=== PATIENT | female | born 1990 | race Caucasian/White ===

== ENCOUNTER 2016-06-22 12:48 | Emergency (ER) | payer OTHER ==
--- NOTE | 2016-06-22 14:22 | UC ---
Complaint Female HPI - HPI Summary HPI Summary: has kush vaginal pain and swelling--was in [place], some spotting, pain with urination - History Of Current Complaint Chief Complaint: UCGU Stated Complaint: URINARY Time Seen by Provider: 06/22/16 14:03 Hx Obtained From: Patient Hx Last Menstrual Period: 12/14/15 ?: No Onset/Duration: Gradual Onset, Lasting Days, Still Present Timing: Constant Severity Initially: Moderate Severity Currently: Moderate Pain Intensity: 5 Pain Scale Used: 0-10 Numeric Character: Burning Aggravating Factor(s): Urination Alleviating Factor(s): Nothing Associated Signs And Symptoms: Positive: Genital Swelling Related Hx: - 2, Para - 2 - Allergies/Home Medications Allergies/Adverse Reactions: Allergies Allergy/AdvReac Type Severity Reaction Status Date / Time No Known Allergies Allergy Verified 06/22/16 14:19 Home Medications: Home Medications Citalopram TAB* [CeleXA TAB*] 10 mg PO DAILY 06/22/16 [History Confirmed ] PMH/Surg Hx/FS Hx/Imm Hx Previously Healthy: Yes Endocrine History Of: Denies: Diabetes, Thyroid Disease Cardiovascular History Of: Denies: Cardiac Disorders, Hypertension Respiratory History Of: Denies: COPD, Asthma GI/ History Of: Denies: Ulcer - Surgical History Surgical History: Yes Surgery Procedure, Year, and Place: C-SECT, periductal mastitis left breast. D& C - Family History Known Family History: Positive: Cardiac Disease, Hypertension, Diabetes, Other - multiple cancers in paternal Aunts - Social History Occupation: Employed Full-time Lives: With Family Alcohol Use: Rare Substance Use Type: None Smoking Status (MU): Light Every Day Tobacco Smoker Type: Cigarettes Amount Used/How Often: 1/4 PPD Length of Time of Smoking/Using Tobacco: 10 YRS Household Exposure Type: Cigarettes Cessation Counseling: Counseled 3+Min - 10 Min - Immunization History Most Recent Tetanus Shot: within 5 years Review of Systems Constitutional: Negative Skin: Negative Eyes: Negative ENT: Negative Respiratory: Negative Cardiovascular: Negative Gastrointestinal: Negative Genitourinary: Dysuria Motor: Negative Neurovascular: Negative Musculoskeletal: Negative Neurological: Negative Psychological: Negative All Other Systems Reviewed And Are Negative: Yes Physical Exam Triage Information Reviewed: Yes Appearance: Well-Appearing, No Pain Distress, Well-Nourished Vital Signs Reviewed: Yes Eye Exam: Normal Eyes: Positive: Conjunctiva Clear ENT Exam: Normal ENT: Positive: Normal ENT inspection, Hearing grossly normal. Negative: Nasal congestion, Nasal drainage, Trismus, Muffled/hoarse voice Neck exam: Normal Neck: Positive: Supple, Nontender, No Lymphadenopathy Respiratory Exam: Normal Respiratory: Positive: Chest non-tender, Lungs clear, Normal breath sounds, No respiratory distress, No accessory muscle use Cardiovascular Exam: Normal Cardiovascular: Positive: RRR, No Murmur, Pulses Normal, Brisk Capillary Refill Abdominal Exam: Normal Abdomen Description: Positive: Nontender, No Organomegaly, Soft Bowel Sounds: Positive: Present Musculoskeletal Exam: Normal Musculoskeletal: Positive: Strength Intact, ROM Intact, No Edema Neurological Exam: Normal Neurological: Positive: Alert, Muscle Tone Normal Psychological Exam: Normal Skin Exam: Normal Re-Evaluation - Re-Evaluation First Eval Change: Improved - lab studies obtained, patient tolerated pelvic exam well Complaint Female Dx - Course Course Of Treatment: a&D ointment to perineium, cool baths, follow with pcp - Differential Dx/Diagnosis Differential Diagnosis/HQI/PQRI: Renal Colic, Sexually Transmitted Disease, Ureteral Stone, Urinary Tract Infection Provider Diagnoses: Excoration of perineum Discharge - Discharge Plan Condition: Stable Disposition: HOME Patient Education Materials: Vaginal Discharge (ED) Referrals: CAMPBELL Bhatia [Primary Care Provider] - 5 Days Additional Instructions: cool water and samson (if any) soap wash, pat completely dry return to your usual hygiene products a small amount of a&D or desitin type ointments can protect urine skin from the irritation of the urine
[2016-06-22 14:26] VITALS: BP 126/60
== END 2016-06-22 15:06 | disposition home or self-care (01) ==
LOC: UCCORT 12:48
DX: S30.814A Abrasion of vagina and vulva, initial encounter (principal); X58.XXXA Exposure to other specified factors, initial encounter; Y93.9 Activity, unspecified; Y92.9 Unspecified place or not applicable; F17.210 Nicotine dependence, cigarettes, uncomplicated; Z71.6 Tobacco abuse counseling; Z32.02 Encounter for pregnancy test, result negative
CPT/HCPCS: 81003; 84702; 87480; 87491; 87510; 87591; 87661; 99212; G0463

== ENCOUNTER 2016-09-14 10:25 | Emergency (ER) | payer OTHER ==
[2016-09-14 11:05] VITALS: BP 114/57
--- NOTE | 2016-09-14 12:37 | UC ---
General HPI - HPI Summary HPI Summary: complaint of left arm pain went camping this weekend and woke up with insect bite on frind night took some benadryl srea of redness has increased and now is painful headache and nauseated denies fever and chills - History of Current Complaint Chief Complaint: UCRas Stated Complaint: INSECT BITE,REDNESS/ SWELLING LEFT ARM Time Seen by Provider: 09/14/16 12:26 Hx Obtained From: Patient - Allergy/Home Medications Allergies/Adverse Reactions: Allergies Allergy/AdvReac Type Severity Reaction Status Date / Time No Known Allergies Allergy Verified 09/14/16 10:58 Home Medications: Home Medications diPHENhydraMINE PO* [Benadryl PO 25 MG TAB*] 25 mg PO TID PRN 09/14/16 [History Confirmed 09/14/16] PMH/Surg Hx/FS Hx/Imm Hx Previously Healthy: Yes Psychological History: Anxiety, Depression - Surgical History Surgical History: Yes Surgery Procedure, Year, and Place: C-SECT, periductal mastitis left breast. D& C - Family History Known Family History: Positive: Cardiac Disease, Hypertension, Diabetes, Other - multiple cancers in paternal Aunts - Social History Occupation: Employed Full-time Lives: With Family Alcohol Use: Rare Substance Use Type: None Smoking Status (MU): Heavy Every Day Tobacco Smoker Type: Cigarettes Amount Used/How Often: 1/2 PPD Length of Time of Smoking/Using Tobacco: 10 YRS Household Exposure Type: Cigarettes Cessation Counseling: Patient Advised to Stop - Immunization History Most Recent Tetanus Shot: within 5 years Review of Systems Constitutional: Negative Skin: Rash Eyes: Negative ENT: Negative Respiratory: Negative Cardiovascular: Negative Gastrointestinal: Negative Genitourinary: Negative Motor: Negative Neurovascular: Negative Musculoskeletal: Negative Neurological: Negative Psychological: Negative All Other Systems Reviewed And Are Negative: Yes Physical Exam Triage Information Reviewed: Yes Appearance: No Pain Distress, Well-Nourished, Obese Vital Signs: Initial Vital Signs Temp 98.1 F 09/14/16 10:59 Pulse 75 09/14/16 10:59 Resp 16 09/14/16 10:59 BP 114/57 09/14/16 10:59 Pulse Ox 99 09/14/16 10:59 Vital Signs Reviewed: Yes Eyes: Positive: Conjunctiva Clear ENT: Positive: Pharynx normal, TMs normal Neck: Positive: No Lymphadenopathy Respiratory: Positive: Lungs clear, Normal breath sounds, No respiratory distress Cardiovascular: Positive: RRR, No Murmur, Pulses Normal Abdomen Description: Positive: Nontender, Soft Bowel Sounds: Positive: Present Musculoskeletal Exam: Normal Neurological: Positive: Alert Psychological Exam: Normal Skin: Positive: Other - left arm 16x13 cm area of erythema on left arm surrounding bite site Course/Dx - Course Course Of Treatment: exam completed. cellulitis secondary to insect bite. UTD tetanus. will rx of keflex - Differential Dx - Multi-Symptom Provider Diagnoses: ceeeluitis left ring finger and left arm Discharge - Discharge Plan Condition: Stable Disposition: HOME Prescriptions: Cephalexin CAP* [Keflex CAP*] 500 mg PO QID #28 cap Patient Education Materials: Cellulitis (ED) Referrals: CAMPBELL Bhatia [Primary Care Provider] - Additional Instructions: Please start antibiotic as directed Increase fluids and rest Take acetaminophen or ibuprofen for fever or pain Please review your discharge instructions. If your symptoms do not improve please call your primary care provider or return to urgent care. CELLULITIS What is Cellulitis? Cellulitis is a bacterial infection of the skin and, sometimes, of the tissues beneath the skin. The skin normally has many types of bacteria on it, but intact skin is an effective barrier that keeps bacteria from entering and growing within the body. When there is a break in the skin, bacteria can enter the body and grow there, causing infection. The infection usually affects outer layers of the skin first, and then spreads deeper into body tissues. Cellulitis can affect any area of the body covered by skin, but it is most common on the face or lower part of the legs. Symptoms Might Include: Skin redness that increases in size as the infection spreads Tight, glossy, "stretched" appearance of the skin Pain or tenderness of the area The affected area may be warm or hot to the touch A thin red line (along a vein) from the cellulitis toward the heart Fever Chills, shaking Muscle aches pains Joint stiffness because of swelling around a joint Treatment Recommendations: The healthcare provider may have prescribed an antibiotic medicine. The medicine should be taken until it is completely gone, even if you are feeling better. If you stop taking the medicine early, the infection may not be completely gone, and the medication may not work the next time. If the infection is on your arm or leg, keep it elevated. You may use warm, wet compresses to relieve the pain and help healing. Soak a clean cloth in warm water, wring it out a little, and apply it to the affected site. Leave the soak in place for 15 minutes and repeat often throughout the day. Rest until the fever is gone and the pain and redness have lessened. You may take ibuprofen (Motrin, Advil), or acetaminophen (Tylenol) for pain. These will help ease some of the symptoms but will not cure the infection. Call Your Doctor or Return Here IF: Your fever does not go down with treatment, or it increases to more than 101 F. You are not starting to get better with the treatment within 24 to 36 hours. You have increasing pain, swelling, or chills. You feel drowsy and lethargic, or you have vomiting or diarrhea. You find the redness is spreading or there are red streaks coming from the infected area. The joint or bone under the infected skin becomes painful after the skin has started to heal. You have any new symptoms that worry you.
== END 2016-09-14 12:52 | disposition home or self-care (01) ==
LOC: UCCORT 10:25
DX: L03.012 Cellulitis of left finger (principal); L03.114 Cellulitis of left upper limb; F17.210 Nicotine dependence, cigarettes, uncomplicated
CPT/HCPCS: 99212; G0463

== ENCOUNTER 2016-10-14 16:37 | Emergency (ER) | payer OTHER ==
[2016-10-14 17:02] VITALS: BP 138/74
--- NOTE | 2016-10-14 17:33 | UC ---
Skin Complaint HPI - HPI Summary HPI Summary: Redness, swelling, pain, firmness under and around R nipple for about a week. Has been feeling feverish, has not checked temperature. Had very similar symptoms in L breast after of child 3 years ago, was dx with "periductal mastitis" and had to have I&D in L nipple. Denies hx of MRSA or other resistant pathogens. No recent trauma, piercings, is not breast-feeding. - History of Current Complaint Chief Complaint: UCSkin Time Seen by Provider: 10/14/16 17:05 Stated Complaint: PERSONAL Hx Obtained From: Patient Hx Last Menstrual Period: 10/14/16 ?: No Onset/Duration: Gradual Onset, Lasting Days Timing: Constant Onset Severity: Mild Current Severity: Severe Location: Discrete Character: Pain, Redness Aggravating: Touch Associated Signs & Symptoms: Positive: Tenderness - Allergy/Home Medications Allergies/Adverse Reactions: Allergies Allergy/AdvReac Type Severity Reaction Status Date / Time No Known Allergies Allergy Verified 10/14/16 16:56 Home Medications: Home Medications Acetaminophen TAB* [Tylenol TAB*] 1,000 mg PO Q6H PRN 10/14/16 [History Confirmed 10/14/16] Venlafaxine EXT RELEASE CAP* [Effexor Xr CAP*] 37.5 mg PO DAILY 10/14/16 [ History Confirmed 10/14/16] Review of Systems Constitutional: Negative Skin: Other - redness, tenderness R nipple Eyes: Negative ENT: Negative Respiratory: Negative Cardiovascular: Negative Gastrointestinal: Negative Genitourinary: Negative Motor: Negative Neurovascular: Negative Musculoskeletal: Negative Neurological: Negative Psychological: Negative All Other Systems Reviewed And Are Negative: Yes PMH/Surg Hx/FS Hx/Imm Hx - Additional Past Medical History Additional PMH: periductal mastitis L breast/nipple 2013 - Surgical History Surgical History: Yes Surgery Procedure, Year, and Place: C-SECT, periductal mastitis left breast. D& C - Family History Known Family History: Positive: Cardiac Disease, Hypertension, Diabetes, Other - multiple cancers in paternal Aunts - Social History Occupation: Employed Full-time Lives: With Family Alcohol Use: Rare Substance Use Type: None Smoking Status (MU): Heavy Every Day Tobacco Smoker Type: Cigarettes Amount Used/How Often: 1/2 PPD Length of Time of Smoking/Using Tobacco: 10 YRS Household Exposure Type: Cigarettes - Immunization History Most Recent Tetanus Shot: within 5 years Physical Exam Triage Information Reviewed: Yes Appearance: Well-Appearing, Pain Distress - mod with movement and palpation, Obese Vital Signs: Initial Vital Signs Temp 99.3 F 10/14/16 16:58 Pulse 75 10/14/16 16:58 Resp 16 10/14/16 16:58 BP 138/74 10/14/16 16:58 Pulse Ox 96 10/14/16 16:58 Vital Signs Reviewed: Yes Eye Exam: Normal, Other - PERRL Eyes: Positive: Conjunctiva Clear ENT Exam: Normal ENT: Positive: Normal ENT inspection, Hearing grossly normal, Pharynx normal, TMs normal Dental Exam: Normal Neck exam: Normal Neck: Positive: Supple, Nontender Respiratory Exam: Normal Respiratory: Positive: Chest non-tender, Lungs clear, Normal breath sounds, No respiratory distress, No accessory muscle use Cardiovascular Exam: Normal Cardiovascular: Positive: RRR, No Murmur Musculoskeletal Exam: Normal Musculoskeletal: Positive: Strength Intact, ROM Intact Neurological Exam: Normal Neurological: Positive: Alert Skin: Positive: significant lesion(s) - redness, swelling firm in the center of R nipple and out to approx 1cm around nipple. Very tender. R axillary LAD Course/Dx - Differential Diagnoses - Skin Complaint Differential Diagnoses: Cellulitis, Impetigo - Diagnoses Provider Diagnoses: R mastitis Discharge - Discharge Plan Condition: Stable Disposition: HOME Prescriptions: Dicloxacillin CAP* [Dynapen CAP*] 500 mg PO QID #40 cap Ibuprofen TAB* [Motrin TAB* 600 MG] 600 mg PO Q8H PRN #30 tab PRN Reason: Pain Patient Education Materials: Mastitis (ED) Referrals: CAMPBELL Bhatia [Primary Care Provider] - José Miguel Cobb MD [Medical Doctor] - 3 Days Additional Instructions: As we discussed, you need close follow-up and possibly further testing such as bloodwork or an ultrasound. Call the surgeon's office tomorrow morning and explain that you were seen here. If they cannot see you by the end of the week, you can try a more local surgeon.
== END 2016-10-14 17:30 | disposition home or self-care (01) ==
LOC: UCCORT 16:37
DX: N61.0 Mastitis without abscess (principal)
CPT/HCPCS: 99212; G0463

== ENCOUNTER 2017-12-29 09:12 | Emergency (ER) | payer OTHER ==
[2017-12-29 09:51] VITALS: BP 116/70
--- NOTE | 2017-12-29 10:02 | UC ---
Ear Complaint HPI - HPI Summary HPI Summary: 27 y/o female presents to the urgent care c/o sinus pain w/ yellowish nasal discharge, nasal congestion for the past 5 days. symptoms getting worse for the past 3 days w/ a GUZMAN. She has Hx of Migraine GUZMAN in the past. she has taking Tylenol PO w/o any relief. B/L ear pain and pressure and a lot of PND which is now triggering a dry cough since yesterday. Pain is 7/10 and Headache is like a band in her forehead. Pt denies dizziness, photophobia, SOB, chest pain, abdominal pain, N/V/D. - History of Current Complaint Chief Complaint: UCGeneralIllness Stated Complaint: EARS,HEADACHE Time Seen by Provider: 12/29/17 10:01 Hx Obtained From: Patient Hx Last Menstrual Period: 12/21/17 ?: No Onset/Duration: Gradual Onset, Lasting Days - 5 days, Still Present, Worse Since - 3 days ago Severity Initially: Mild Severity Currently: Moderate Pain Intensity: 7 Pain Scale Used: 0-10 Numeric Aggravating Factors: Cold Alleviating Factors: OTC Meds Associated Signs/Symptoms: Positive: URI Symptoms Related History: Seasonal Allergies - Allergies/Home Medications Allergies/Adverse Reactions: Allergies Allergy/AdvReac Type Severity Reaction Status Date / Time No Known Allergies Allergy Verified 12/29/17 09:47 PMH/Surg Hx/FS Hx/Imm Hx Previously Healthy: Yes - Pt denies PMHX - Surgical History Surgical History: Yes Surgery Procedure, Year, and Place: C-SECT, periductal mastitis left breast. D& C - Family History Known Family History: Positive: Cardiac Disease, Hypertension, Diabetes Family History: multiple cancers in paternal Aunts - Social History Occupation: Employed Full-time Lives: With Family Alcohol Use: None Substance Use Type: None Smoking Status (MU): Heavy Every Day Tobacco Smoker Type: Cigarettes Amount Used/How Often: 1/2 PPD Length of Time of Smoking/Using Tobacco: 10 YRS Household Exposure Type: Cigarettes - Immunization History Most Recent Tetanus Shot: within 5 years Review of Systems Constitutional: Negative Skin: Negative Eyes: Negative ENT: Ear Ache - B/L pain, Nasal Discharge - yellowish, Sinus Congestion, Sinus Pain/Tenderness Respiratory: Cough - dry Cardiovascular: Negative Gastrointestinal: Negative Genitourinary: Negative Motor: Negative Neurovascular: Negative Musculoskeletal: Negative Neurological: Headache Psychological: Negative Is Patient Immunocompromised?: No All Other Systems Reviewed And Are Negative: Yes Physical Exam - Summary Physical Exam Summary: Vitals: reviewed General: Well developed, well-nourished female patient with NAD. Head and face: Normocephalic and atraumatic, Positive tenderness over the frontal and maxillary sinuses.. Eyes: PERRLA, EOMI x 2. Normal conjunctiva. No eye discharge. ENT: Ears and TM with normal limits. Nose: edematous and erythematous nasal mucosa with with yellowish discharge and erythematous mucosa. Pharynx with erythema, no exudate. +PND yellowish Neck: Supple, no JVD, no carotid bruits and no lymphadenopathy. Lungs: clear, no rales, no rhonchi, no wheezes. CVS: RRR, S1 and S2 present no murmurs or gallops appreciated. Abdomen: soft nontender with positive bowel sounds. Extremities: no edema noted. Neuro: WNL. Skin: warm and dry Triage Information Reviewed: Yes Vital Signs: Initial Vital Signs Temp 98.8 F 12/29/17 09:45 Pulse 83 12/29/17 09:45 Resp 16 12/29/17 09:45 BP 116/70 12/29/17 09:45 Pulse Ox 99 12/29/17 09:45 Ear Complaint Course/Dx - Course Course Of Treatment: 27 y/o female presents to the urgent care c/o sinus pain w / yellowish nasal discharge, nasal congestion for the past 5 days. symptoms getting worse for the past 3 days w/ a GUZMAN. She has Hx of Migraine GUZMAN in the past. she has taking Tylenol PO w/o any relief. B/L ear pain and pressure and a lot of PND which is now triggering a dry cough since yesterday. Pain is 7/10 and Headache is like a band in her forehead. Pt denies dizziness, photophobia, SOB, chest pain, abdominal pain, N/V/D. Hx obtained. Pt with Acute bacterial sinusitis on examination and symptoms getting worse w/ GUZMAN and sinus pressure. Pt givne Ibuprofen PO at the clinic to alleviate GUZMAN. Pt tolerated well medicationa nd GUZMAN improved. Pt Rx Augmentin PO and flonase nasal spray. Ibuprofen PO PO for GUZMAN. Discharge instructions explained to Pt. Advised to Return to the clinic or PCP if symptoms do not improve.Pt understood and agreed with plan of care. - Differential Dx/Diagnosis Differential Diagnosis/HQI/PQRI: Cerumen Impaction, Otitis Externa, Otitis Media , URI, Other - sinusitis, Migrane, Tension Headache Provider Diagnoses: 1- Acute bacterial sinusitis. 2- Headache Discharge - Sign-Out/Discharge Documenting (check all that apply): Patient Departure - D/C home All imaging exams completed and their final reports reviewed: No Studies - Discharge Plan Condition: Stable Disposition: HOME Prescriptions: Amoxicillin/Clavulanate TAB* [Augmentin TAB 875*] 875 mg PO BID #20 tab Fluticasone NASAL SPRAY 50MCG* [Flonase NASAL SPRAY 50MCG*] 2 spray BOTH NARES DAILY #1 btl Ibuprofen TAB* [Motrin TAB* 800 MG] 800 mg PO Q6H PRN #30 tab PRN Reason: Headache Patient Education Materials: Sinusitis (ED) Forms: *Work Release Referrals: [facility] [place] [facility] [Outside] - 3 Days Additional Instructions: 1- Please increase fluid intake and rest. take full course of antibiotic to avoid resistance 2-Use Flonase as directed to help drain fluid. Also buy saline drops to clear sinuses 3-Take Ibuprofen PO q6-8hrs prn after meals as directed to alleviate Headache and sinus pain. 4-Return to the clinic or PCP in 3 days if symptoms do not improve for further management and treatment - Billing Disposition and Condition Condition: STABLE Disposition: Home
[2017-12-29] MEDS ORDERED: Ibuprofen TAB* 400 MG PO ONE (10:10)
== END 2017-12-29 10:24 | disposition home or self-care (01) ==
LOC: UCCORT 09:12
DX: J01.90 Acute sinusitis, unspecified (principal); B96.89 Other specified bacterial agents as the cause of diseases classified elsewhere; R51 Headache; F17.210 Nicotine dependence, cigarettes, uncomplicated
CPT/HCPCS: 99212; A9270-GY; G0463

== ENCOUNTER 2018-06-15 11:48 | Emergency (ER) | payer OTHER ==
[2018-06-15 12:20] VITALS: BP 110/66
--- NOTE | 2018-06-15 13:07 | UC ---
UC General HPI - HPI Summary HPI Summary: PT C/O NAUSEA WITH 4-5 BOUTS OF DIARRHEA DAILY SINCE THURSDAY. SHE NOTES THAT TODAY, SHE IS STARTING TO FEEL BETTER AND ONLY HAD A LITTLE DIARRHEA ONCE THIS AM. NO ABDOMINAL PAIN, FEVER, RECENT ANTIBIOTIC USE, TRAVEL OUTSIDE THE COUNTRY OR HX IBD. - History of Current Complaint Chief Complaint: UCGI Stated Complaint: DIARRHEA,DISCOMFORT Time Seen by Provider: 06/15/18 12:59 Hx Obtained From: Patient Hx Last Menstrual Period: 06/09/18 Pain Intensity: 0 Associated Signs & Symptoms: Positive: Diarrhea, Nausea. Negative: Abdominal Pain, Fever - Allergy/Home Medications Allergies/Adverse Reactions: Allergies Allergy/AdvReac Type Severity Reaction Status Date / Time all cillins Allergy Swelling Uncoded 06/15/18 12:18 Home Medications: Home Medications NK [No Home Medications Reported] 06/15/18 [History Confirmed 06/15/18] PMH/Surg Hx/FS Hx/Imm Hx Previously Healthy: Yes - Surgical History Surgical History: Yes Surgery Procedure, Year, and Place: C-SECT, periductal mastitis left breast. D& C - Family History Known Family History: Positive: Cardiac Disease, Hypertension, Diabetes, Other - multiple cancers in paternal Aunts Family History: multiple cancers in paternal Aunts - Social History Occupation: Employed Full-time Alcohol Use: Rare Substance Use Type: None Smoking Status (MU): Heavy Every Day Tobacco Smoker Type: Cigarettes Amount Used/How Often: 1/2 PPD Length of Time of Smoking/Using Tobacco: 10 YRS Household Exposure Type: Cigarettes - Immunization History Most Recent Tetanus Shot: within 5 years Review of Systems All Other Systems Reviewed And Are Negative: Yes Gastrointestinal: Positive: Diarrhea, Nausea. Negative: Abdominal Pain Physical Exam Triage Information Reviewed: Yes Appearance: Well-Appearing Vital Signs: Initial Vital Signs Temp 97.9 F 06/15/18 12:15 Pulse 89 06/15/18 12:15 Resp 17 06/15/18 12:15 BP 110/66 06/15/18 12:15 Pulse Ox 100 06/15/18 12:15 Vital Signs Reviewed: Yes Eyes: Positive: Conjunctiva Clear ENT: Positive: Pharynx normal, TMs normal. Negative: Nasal congestion, Nasal drainage Neck: Positive: Supple, Nontender, No Lymphadenopathy Respiratory: Positive: Lungs clear, Normal breath sounds, No respiratory distress Cardiovascular: Positive: RRR, No Murmur Abdomen Description: Positive: Nontender, No Organomegaly, Soft. Negative: Distended, Guarding Bowel Sounds: Positive: Present Musculoskeletal: Positive: ROM Intact Neurological: Positive: Alert Psychological: Positive: Age Appropriate Behavior Skin Exam: Normal Course/Dx - Differential Dx - Multi-Symptom Differential Diagnoses: Other - NON TOXIC, NO ACUTE ABDOMEN. NO CONCERN FOR C- DIFF COLITIS, PARASITES OR TRAVELERS DIARRHEA. - Diagnoses Provider Diagnosis: Nausea, Diarrhea Discharge - Sign-Out/Discharge Documenting (check all that apply): Patient Departure All imaging exams completed and their final reports reviewed: No Studies - Discharge Plan Condition: Stable Disposition: HOME Patient Education Materials: Acute Diarrhea (ED) Forms: *Work Release Referrals: CAMPBELL Martino [Primary Care Provider] - Additional Instructions: FOLLOW UP PRIMARY CARE IF NOT BETTER WITHIN 3-4 DAYS OR SOONER IF WORSE. - Billing Disposition and Condition Condition: STABLE Disposition: Home - Attestation Statements Provider Attestation: I was available for consult. This patient was seen by the [facility]. The patient was not presented to, seen by, or examined by me. -Dino
== END 2018-06-15 13:20 | disposition home or self-care (01) ==
LOC: UCCORT 11:48
DX: R11.0 Nausea (principal); R19.7 Diarrhea, unspecified; F17.210 Nicotine dependence, cigarettes, uncomplicated; Z88.0 Allergy status to penicillin
CPT/HCPCS: 99211; G0463

== ENCOUNTER 2018-11-12 09:51 | Emergency (ER) | payer OTHER ==
[2018-11-12 10:46] VITALS: BP 121/76
--- NOTE | 2018-11-12 10:48 | UC ---
Lower Extremity/Ankle HPI - HPI Summary HPI Summary: 28-year-old female who has had some pain at the base of the left great toe. She has no history of gout however there is a family history of gout. She denies any injury however she states she is on her feet all day and 40 hours a week. She states occasionally the pain will shoot into the plantar surface of her left foot. - History of Current Complaint Chief Complaint: UCLowerExtremity Stated Complaint: LEFT FOOT COMPLAINT Time Seen by Provider: 11/12/18 10:36 Hx Obtained From: Patient Hx Last Menstrual Period: 11/10/18 ?: No Onset/Duration: Gradual Onset Severity Initially: Mild Severity Currently: Mild Pain Intensity: 4 Aggravating Factor(s): Ambulation Alleviating Factor(s): Rest Able to Bear Weight: Yes - Allergies/Home Medications Allergies/Adverse Reactions: Allergies Allergy/AdvReac Type Severity Reaction Status Date / Time all cillins Allergy Swelling Uncoded 11/12/18 10:46 PMH/Surg Hx/FS Hx/Imm Hx Previously Healthy: Yes - Surgical History Surgical History: Yes Surgery Procedure, Year, and Place: C-SECT, periductal mastitis bilat. breast. D&C - Family History Known Family History: Positive: Cardiac Disease, Hypertension, Diabetes, Other - multiple cancers in paternal Aunts, family history of gout Family History: multiple cancers in paternal Aunts - Social History Alcohol Use: Rare Substance Use Type: None Smoking Status (MU): Heavy Every Day Tobacco Smoker Type: Cigarettes Amount Used/How Often: 1/2 ppd Length of Time of Smoking/Using Tobacco: since age 13 Have You Smoked in the Last Year: Yes Household Exposure Type: Cigarettes - Immunization History Most Recent Tetanus Shot: within 5 years Review of Systems All Other Systems Reviewed And Are Negative: Yes Musculoskeletal: Positive: Other: - Pain at the base of the left great toe with minimal swelling. Is Patient Immunocompromised?: No Physical Exam Triage Information Reviewed: Yes Appearance: Well-Appearing, No Pain Distress, Well-Nourished Vital Signs: Initial Vital Signs Temp 98.3 F 11/12/18 10:35 Pulse 80 11/12/18 10:35 Resp 15 11/12/18 10:35 BP 121/76 11/12/18 10:35 Pulse Ox 100 11/12/18 10:35 Vital Signs Reviewed: Yes Musculoskeletal: Positive: Strength Intact, ROM Intact, Other: - Very minimal swelling at the base of the left great toe with minimal erythema. Good peripheral pulses neuro sensation capillary refill. Good range of motion. Achilles is intact. Neurological: Positive: Alert, Muscle Tone Normal Psychological Exam: Normal Skin Exam: Normal Lower Extremity Course/Dx - Course Course Of Treatment: Left foot x-ray: Negative - Differential Dx/Diagnosis Provider Diagnosis: Foot pain, left Discharge - Sign-Out/Discharge Documenting (check all that apply): Patient Departure All imaging exams completed and their final reports reviewed: Yes - Discharge Plan Condition: Good Disposition: HOME Patient Education Materials: Low Purine Diet (ED), Gout (ED) Referrals: Gerardo Rodriguez MD [Primary Care Provider] - Additional Instructions: Ice and elevate as sparingly as possible. Take Motrin for pain. Follow-up with your primary care provider as needed if no improvement. - Billing Disposition and Condition Condition: GOOD Disposition: Home
== END 2018-11-12 11:23 | disposition home or self-care (01) ==
LOC: UCCORT 09:51
DX: M79.672 Pain in left foot (principal); F17.210 Nicotine dependence, cigarettes, uncomplicated
CPT/HCPCS: 99211; G0463

== ENCOUNTER 2018-11-15 11:21 | Emergency (ER) | payer OTHER ==
[2018-11-15 13:00] VITALS: BP 105/64
--- NOTE | 2018-11-15 14:25 | UC ---
Lower Extremity/Ankle HPI - HPI Summary HPI Summary: Pt presents with c/o worsening left foot pain and ankle weakness. Pt was seen here on 11/12 and had an xray of left foot that was negative for fracture. Pt states pain is wrose along plantar aspect of foot, radiates from heel to toes. - History of Current Complaint Chief Complaint: UCLowerExtremity Stated Complaint: LEFT ANKLE/FOOT RE-CK Time Seen by Provider: 11/15/18 13:02 Hx Obtained From: Patient Hx Last Menstrual Period: 11/08/18 ?: No Onset/Duration: Gradual Onset, Worse Since - onset Severity Initially: Mild Severity Currently: Moderate Pain Intensity: 6 Pain Scale Used: 0-10 Numeric Aggravating Factor(s): Standing, Ambulation Alleviating Factor(s): Rest, Elevation Able to Bear Weight: Yes - minimal - Risk Factors Gout Risk Factors: Negative, Obesity DVT Risk Factors: Negative Septic Arthritis Risk Factor: Negative - Allergies/Home Medications Allergies/Adverse Reactions: Allergies Allergy/AdvReac Type Severity Reaction Status Date / Time all cillins Allergy Swelling Uncoded 11/15/18 13:01 PMH/Surg Hx/FS Hx/Imm Hx Previously Healthy: Yes - Surgical History Surgical History: Yes Surgery Procedure, Year, and Place: C-SECT, periductal mastitis bilat. breast. D&C - Family History Known Family History: Positive: Cardiac Disease, Hypertension, Diabetes, Other - multiple cancers in paternal Aunts, family history of gout Family History: multiple cancers in paternal Aunts - Social History Occupation: Employed Full-time Lives: With Family Alcohol Use: Rare Substance Use Type: None Smoking Status (MU): Heavy Every Day Tobacco Smoker Type: Cigarettes Amount Used/How Often: 1/2 ppd Length of Time of Smoking/Using Tobacco: since age 13 Have You Smoked in the Last Year: Yes Household Exposure Type: Cigarettes - Immunization History Most Recent Tetanus Shot: within 5 years Vaccination Up to Date: Yes Review of Systems All Other Systems Reviewed And Are Negative: Yes Constitutional: Positive: Negative Skin: Positive: Negative Eyes: Positive: Negative ENT: Positive: Negative Respiratory: Positive: Negative Cardiovascular: Positive: Negative Gastrointestinal: Positive: Negative Genitourinary: Positive: Negative Motor: Positive: Decreased ROM - left foot, Weakness - left ankle Neurovascular: Positive: Negative Musculoskeletal: Positive: Arthralgia, Decreased ROM, Edema, Myalgia Neurological: Positive: Negative Psychological: Positive: Negative Is Patient Immunocompromised?: No Physical Exam Triage Information Reviewed: Yes Appearance: Well-Appearing Vital Signs: Initial Vital Signs Temp 98.5 F 11/15/18 12:54 Pulse 73 11/15/18 12:54 Resp 16 11/15/18 12:54 BP 105/64 11/15/18 12:54 Pulse Ox 100 11/15/18 12:54 Vital Signs Reviewed: Yes Eye Exam: Normal ENT Exam: Normal Dental Exam: Normal Neck exam: Normal Respiratory: Positive: No respiratory distress Musculoskeletal: Positive: Other: - pain center of left heel that pt c/o raidates to distal toes. Neurological Exam: Normal Psychological Exam: Normal Skin Exam: Normal Lower Extremity Course/Dx - Differential Dx/Diagnosis Differential Diagnosis/HQI/PQRI: Sprain, Strain, Tendonitis Provider Diagnosis: Plantar fasciitis of left foot Discharge - Sign-Out/Discharge Documenting (check all that apply): Patient Departure All imaging exams completed and their final reports reviewed: No Studies - Discharge Plan Condition: Stable Disposition: HOME Patient Education Materials: Plantar Fasciitis Exercises (GEN), Plantar Fasciitis (ED) Forms: *Work Release Referrals: Semaj Burnette MD [Medical Doctor] - If Needed Josh rGey MD [Medical Doctor] - If Needed Kumar Yanes DPM [Doctor of Podiatric Medicine] - If Needed Gerardo Rodriguez MD [Primary Care Provider] - If Needed Additional Instructions: Please remain non weight bearing and ice daily until able to bear weight. Please follow up with any of the specialists listed or one of your choice. Please only wear shoes that are supportive. - Billing Disposition and Condition Condition: STABLE Disposition: Home
== END 2018-11-15 14:06 | disposition home or self-care (01) ==
LOC: UCCORT 11:21
DX: M72.2 Plantar fascial fibromatosis (principal); F17.210 Nicotine dependence, cigarettes, uncomplicated
CPT/HCPCS: 99212; G0463

== ENCOUNTER 2019-01-17 10:48 | Emergency (ER) | payer OTHER ==
--- NOTE | 2019-01-17 12:58 | UC ---
Throat Pain/Nasal Zoran HPI - HPI Summary HPI Summary: 29 y/o female presents to the urgent care c/o Nonproductive cough, nasal congestion w/ green nasal discharge, sinus pain for the past week. Bilateral earache x4 days. But left ear is worse since last night. She has been taking OTC medication to alleviate symptoms. This morning she woke up w/ sore throat and her children have been w/ similar symptoms. Pain is 5/10 associated w/ sore throat and pressure. Pt denies fever, SOB, wheezing, chest pain, dizziness, abdominal pain, N/V/D. - History of Current Complaint Chief Complaint: UCRespiratory Stated Complaint: L EAR PAIN/CONGESTION Time Seen by Provider: 01/17/19 12:55 Hx Obtained From: Patient Hx Last Menstrual Period: 01/13/19 ?: No Onset/Duration: Gradual Onset, Lasting Weeks - 1 week, Still Present, Worse Since - 2 days ago Severity: Moderate Pain Intensity: 5 Pain Scale Used: 0-10 Numeric Cough: Nonproductive Associated Signs & Symptoms: Positive: Sinus Discomfort, Nasal Discharge - green , Other - B/L ear pain. Negative: Dysphagia, Wheezing - Epiglottits Risk Factors Epiglottis Risk Factors: Negative - Allergies/Home Medications Allergies/Adverse Reactions: Allergies Allergy/AdvReac Type Severity Reaction Status Date / Time amoxicillin Allergy Swelling Verified 01/17/19 11:34 all cillins Allergy Swelling Uncoded 01/17/19 11:34 PMH/Surg Hx/FS Hx/Imm Hx Previously Healthy: Yes - Pt denies pMHX - Surgical History Surgical History: Yes Surgery Procedure, Year, and Place: C-SECT, periductal mastitis bilat. breast. D&C - Family History Known Family History: Positive: Cardiac Disease, Hypertension, Diabetes, Other - multiple cancers in paternal Aunts, family history of gout Family History: multiple cancers in paternal Aunts - Social History Occupation: Employed Full-time Lives: With Family Alcohol Use: None Substance Use Type: None Smoking Status (MU): Heavy Every Day Tobacco Smoker Type: Cigarettes Amount Used/How Often: 1/2 ppd Length of Time of Smoking/Using Tobacco: since age 13 Have You Smoked in the Last Year: Yes Household Exposure Type: Cigarettes - Immunization History Most Recent Tetanus Shot: within 5 years Vaccination Up to Date: Yes Review of Systems All Other Systems Reviewed And Are Negative: Yes Constitutional: Positive: Negative Skin: Positive: Negative Eyes: Positive: Negative ENT: Positive: Sore Throat, Ear Ache - B/L ear pain LF>RT, Nasal Discharge - green, Sinus Congestion, Sinus Pain/Tenderness, Other - Moderate green PND Respiratory: Positive: Cough - dry Cardiovascular: Positive: Negative Gastrointestinal: Positive: Negative Genitourinary: Positive: Negative Motor: Positive: Negative Neurovascular: Positive: Negative Musculoskeletal: Positive: Negative Neurological: Positive: Headache Psychological: Positive: Negative Is Patient Immunocompromised?: No Physical Exam - Summary Physical Exam Summary: Vitals: reviewed General: Well developed, well-nourished obese female patient with NAD. Head and face: Normocephalic and atraumatic, Positive tenderness over the frontal and maxillary sinuses.. Eyes: PERRLA, EOMI x 2. Normal conjunctiva. No eye discharge. ENT: B/L external ear canal clear, LF TM injected w/ erythema and mild yellowish drainage, RT TM WNL. Nose: edematous and erythematous nasal mucosa with with yellowish discharge and erythematous mucosa. Pharynx with erythema, no exudate. Neck: Supple, no JVD, no carotid bruits and no lymphadenopathy. Lungs: clear, no rales, no rhonchi, no wheezes. CVS: RRR, S1 and S2 present no murmurs or gallops appreciated. Abdomen: soft nontender with positive bowel sounds. Extremities: no edema noted. Neuro: WNL. Skin: warm and dry Triage Information Reviewed: Yes Vital Signs: Initial Vital Signs Temp 98.3 F 01/17/19 11:35 Pulse 79 01/17/19 11:35 Resp 16 01/17/19 11:35 BP 115/68 01/17/19 11:35 Pulse Ox 100 01/17/19 11:35 Throat Pain/Nasal Course/Dx - Course Course Of Treatment: 29 y/o female presents to the urgent care c/o Nonproductive cough, nasal congestion w/ green nasal discharge, sinus pain for the past week. Bilateral earache x4 days. But left ear is worse since last night. She has been taking OTC medication to alleviate symptoms. This morning she woke up w/ sore throat and her children have been w/ similar symptoms. Pain is 5/10 associated w/ sore throat and pressure. Pt denies fever, SOB, wheezing, chest pain, dizziness, abdominal pain, N/V/D. Hx obtained. Pt w/ acute bacterial sinusitis, and left otitis media on examination. Rapid strep : negative. Pt PCN allergic. Pt Rx Doxycycline PO and flonase nasal spray. Discharge instructions explained to Pt. Advised to Return to the clinic or PCP if symptoms do not improve.Pt understood and agreed with plan of care. - Differential Dx/Diagnosis Differential Diagnosis/HQI/PQRI: Influenza, Laryngitis, Otitis Media, Pharyngitis, Sinusitis, Tonsillitis, URI Provider Diagnosis: Acute bacterial sinusitis, Left otitis media Discharge ED - Sign-Out/Discharge Documenting (check all that apply): Patient Departure - D/C home All imaging exams completed and their final reports reviewed: No Studies - Discharge Plan Condition: Stable Disposition: HOME Prescriptions: DOXYcycline CAP(*) [DOXYcycline 100MG CAP(*)] 100 mg PO BID #14 cap Fluticasone NASAL SPRAY 50MCG* [Flonase NASAL SPRAY 50MCG*] 2 spray BOTH NARES DAILY #1 btl Patient Education Materials: Sinusitis (ED) Referrals: Gerardo Rodriguez MD [Primary Care Provider] - 3 Days Additional Instructions: 1- Please take the full course of the antibiotic to avoid resistance.Take yogurts w/ probiotics or Culturelle to protect your GI system 2-Please continue taking ibuprofen PO q6-8hrs prn as instructed after meals to alleviate pain and swelling. Increase fluid intake, eat well, rest and avoid strenuous exercise 3- Use Flonase nasal spray and saline drops as directed to alleviate nasal congestion. 4-If symptoms do not improve or worsen please f/u with your PCP in 3 days for further evaluation and treatment. - Billing Disposition and Condition Condition: STABLE Disposition: Home
--- OUTSIDE RECORDS SUMMARY | 2019-01-17 13:32 | XMS REPORT | Continuity of Care Document ---
:1990 External Reference #:[id number] Author Name Gerardo Solano M.D. (transmitted by agent of provider Tena Abad) Address [address] [place] [address] [place] [address] Care Team Providers Name Role Phone Gerardo Rodriguez MD - Family Medicine Care Team Information [employer] [phone] Problems Description No Information Available Social History Type Date Description Comments Sex Unknown Tobacco Use Start: Unknown currently smokes 1/2 Pack Daily Smoking Status Reviewed: 12/01/18 currently smokes 1/2 Pack Daily ETOH Use Rarely consumes alcohol Tobacco Use Start: Unknown Light tobacco smoker (10 or fewer cigarettes/day) Recreational Drug Use Denies Drug Use Exercise Type/Frequency Exercises sporadically Allergies, Adverse Reactions, Alerts Active Allergies Reaction Severity Comments Date Penicillin Rash 12/01/2018 Medications Active Medications SIG Qnty Indications Ordering Date Provider Phendimetrazine Tartrate take 2 tablets by Unknown 35mg mouth three times Tablets a day 1 hour Before A Meal maximum daily doseof 6 Ibuprofen take 1 tablet by Unknown 800mg Tablets mouth every 6 to 8 hours if needed Clindamycin HCL take 1 capsule by Unknown 300mg mouth every 6 Capsules hours Meclizine HCL take 1 tablet by Unknown 25mg Tablets mouth every 6 hours if needed for dizziness Fluticasone Propionate instill 2 sprays Unknown into each nostril 50mcg/Act Suspension once daily as needed Immunizations Description No Information Available Vital Signs Date Vital Result Comment 12/01/2018 9:10am Height 60 inches 5'0" Weight 213.38 lb Heart Rate 82 /min BP Systolic Sitting 128 mmHg BP Diastolic Sitting 70 mmHg Respiratory Rate 18 /min Body Temperature 99.1 F Pain Level 4 O2 % BldC Oximetry 99 % BMI (Body Mass Index) 41.7 kg/m2 Results Description No Information Available Procedures Description No Information Available Medical Devices Description No Information Available Encounters Description No Information Available Assessments Date Code Description Provider 12/01/2018 M72.2 Plantar fascial fibromatosis Gerardo Solano M.D. Plan of Treatment 12/01/2018 - Gerardo Solano M.D.M72.2 Plantar fascial fibromatosisNew Therapy: Physical TherapyFollow up:As needed Functional Status Description No Information Available Mental Status Description No Information Available Referrals Description No Information Available
[2019-01-17 13:37] VITALS: BP 112/71
== END 2019-01-17 13:43 | disposition home or self-care (01) ==
LOC: UCCORT 10:48
DX: J01.90 Acute sinusitis, unspecified (principal); H66.92 Otitis media, unspecified, left ear; R05 Cough; F17.210 Nicotine dependence, cigarettes, uncomplicated; B96.89 Other specified bacterial agents as the cause of diseases classified elsewhere; Z88.0 Allergy status to penicillin
CPT/HCPCS: 87651; 99212; G0463

== ENCOUNTER 2019-02-07 09:01 | Emergency (ER) | payer OTHER ==
[2019-02-07 09:52] VITALS: BP 113/78
--- NOTE | 2019-02-07 10:21 | UC ---
Throat Pain/Nasal Zoran HPI - HPI Summary HPI Summary: 29-year-old woman comes in with chief complaint of sinus pain pressure and discharge. started more than 2 weeks ago. She is treated with doxycycline for one week. It did improve some of her symptoms initially. Since then with sinus pressure is gotten worse she is continuing to have yellow and green rhinorrhea. She has been using [id number] medications to include Sudafed. No chest congestion or shortness of breath. Pain is worse in the maxillary sinuses. - History of Current Complaint Chief Complaint: UCRespiratory Stated Complaint: FEVER,CONGESTION Time Seen by Provider: 02/07/19 10:00 Hx Last Menstrual Period: ~01/17/19 Pain Intensity: 8 - Allergies/Home Medications Allergies/Adverse Reactions: Allergies Allergy/AdvReac Type Severity Reaction Status Date / Time amoxicillin Allergy Swelling Verified 02/07/19 09:47 Penicillins Allergy Swelling Verified 02/07/19 09:47 PMH/Surg Hx/FS Hx/Imm Hx Previously Healthy: Yes - Surgical History Surgical History: Yes Surgery Procedure, Year, and Place: C-SECT, periductal mastitis bilat. breast. D&C - Family History Known Family History: Positive: Cardiac Disease, Hypertension, Diabetes, Other - multiple cancers in paternal Aunts, family history of gout Family History: multiple cancers in paternal Aunts - Social History Alcohol Use: None Substance Use Type: None Smoking Status (MU): Heavy Every Day Tobacco Smoker Type: Cigarettes Amount Used/How Often: 1/2 PPD Length of Time of Smoking/Using Tobacco: Since Age 13 Have You Smoked in the Last Year: Yes Household Exposure Type: Cigarettes - Immunization History Most Recent Tetanus Shot: within 5 years Vaccination Up to Date: Yes Review of Systems All Other Systems Reviewed And Are Negative: Yes Constitutional: Positive: Other - SEE HPI Skin: Positive: Negative Eyes: Positive: Negative ENT: Positive: Nasal Discharge, Sinus Congestion, Sinus Pain/Tenderness Respiratory: Positive: Negative Cardiovascular: Positive: Negative Gastrointestinal: Positive: Negative Motor: Positive: Negative Neurovascular: Positive: Negative Musculoskeletal: Positive: Negative Neurological: Positive: Negative Psychological: Positive: Negative Is Patient Immunocompromised?: No Physical Exam Triage Information Reviewed: Yes Appearance: No Pain Distress, Well-Nourished, Ill-Appearing - MILD Vital Signs: Initial Vital Signs Temp 98.5 F 02/07/19 09:43 Pulse 94 02/07/19 09:43 Resp 18 02/07/19 09:43 BP 113/78 02/07/19 09:43 Pulse Ox 99 02/07/19 09:43 Vital Signs Reviewed: Yes Eye Exam: Normal Eyes: Positive: Conjunctiva Clear ENT: Positive: Pharyngeal erythema, Nasal congestion, Nasal drainage, TMs normal , Sinus tenderness Neck: Positive: Supple Respiratory: Positive: Lungs clear, Normal breath sounds, No respiratory distress Cardiovascular: Positive: RRR Musculoskeletal: Positive: Strength Intact, ROM Intact Neurological: Positive: Alert, Muscle Tone Normal Psychological: Positive: Normal Response To Family, Age Appropriate Behavior Skin Exam: Normal Throat Pain/Nasal Course/Dx - Course Course Of Treatment: Will treat the continuing sinusitis symptoms with 10 days of doxycycline. I also gave a refill of doxycycline to be used if not completely improved. I recommended that she stop taking [id number] decongestants as it may be contributing to the congestion in her sinuses. She has Flonase at home which she can go ahead and use also use saline nasal spray. Follow-up with primary care doctor get reevaluated sooner if worse or any questions or concerns. - Differential Dx/Diagnosis Provider Diagnosis: Sinusitis Discharge ED - Sign-Out/Discharge Documenting (check all that apply): Patient Departure All imaging exams completed and their final reports reviewed: No Studies - Discharge Plan Condition: Stable Disposition: HOME Prescriptions: DOXYcycline CAP(*) [DOXYcycline 100MG CAP(*)] 100 mg PO BID #20 cap Patient Education Materials: Sinusitis (ED) Forms: *Work Release Referrals: Gerardo Rodriguez MD [Primary Care Provider] - Additional Instructions: FOLLOW UP WITH YOUR DOCTOR IF NOT COMPLETELY IMPROVED. GET REEVALUATED IF NOT IMPROVING OR WORSE OR ANY QUESTIONS OR CONCERNS. - Billing Disposition and Condition Condition: STABLE Disposition: Home
== END 2019-02-07 10:28 | disposition home or self-care (01) ==
LOC: UCCORT 09:01
DX: J32.9 Chronic sinusitis, unspecified (principal); Z88.0 Allergy status to penicillin; F17.210 Nicotine dependence, cigarettes, uncomplicated
CPT/HCPCS: 99212; G0463